=== PATIENT | female | born 1965 | race Caucasian/White ===

== ENCOUNTER 2020-07-20 16:16 | Outpatient (REF) | payer BC, SELFPAY ==
[2020-07-20 17:22] LABS: Alanine Aminotransferase 15 U/L (0-31); Albumin Level 4.4 g/dL (3.5-5.0); Alkaline Phosphatase 110 U/L (39-117); Anion Gap 15 (12-20); Aspartate Amino Transferase 15 U/L (5-31); Bilirubin Direct < 0.2 mg/dL (0.0-0.5); Bilirubin Total 0.2 mg/dL (0.0-1.0); Blood Urea Nitrogen 11 mg/dL (9-16); Carbon Dioxide 23 mmol/L (22-29); Chloride 107 mmol/L (96-108); Estimated Glomerular Filt Rate > 60; Glucose Random 93 mg/dL (60-115); Sodium 141 mmol/L (135-145); Total Protein 6.8 g/dL (6.5-8.0)
== END 2020-07-20 16:17 | disposition home or self-care (01) ==
LOC: HO.LAB 16:16
PROVIDERS: PCP Internal Medicine; Visit Provider Psychiatry & Neurology Neurology
DX: G40.209 Localization-related (focal) (partial) symptomatic epilepsy and epileptic syndromes with complex partial seizures, not intractable, without status epilepticus (principal)
CPT/HCPCS: 36415; 80048; 80076

== ENCOUNTER 2025-03-15 14:18 | Outpatient (AMB) | payer OTHER, SELFPAY ==
--- NOTE | 2025-03-15 14:24 | A.OFFVIS_ITS ---
Intake Visit Reasons: Follow up Allergies codeine Allergy (Unknown, Verified 03/15/25 14:31) Unknown Medication List - Last Reconciled 03/15/25 by Pretty Mckay CNP albuterol sulfate 90 mcg/actuation 2 puffs inhalation Q4H PRN atorvastatin 20 mg PO DAILY cyclobenzaprine 5 mg PO BEDTIME PRN meloxicam 7.5 mg PO DAILY omeprazole 40 mg PO BID ondansetron 4 mg PO DAILY oxcarbazepine 300 mg PO BID 90 days paroxetine HCl 10 mg PO DAILY sumatriptan succinate 50 mg PO DAILY PRN topiramate 100 mg PO BID 90 days HPI Comments Details: 59-year-old woman with chronic neck, left shoulder pain, previously treated with opioids, complex partial seizure disorder (daydreaming, spacing out, unresponsiveness, not talking for a few seconds with no knowledge of it) associated with left parietal meningioma treated with XRT in 2009, and migraine treated with topiramate. She was doing okay. She was taking oxcarbazepine twice a day. No seizures. Headaches were still there, but she has not had to sumatriptan recently. She was having some pain to wrists, and numbness and tingling to first three fingers bilaterally off and on. Strength was not as good, and she was not crafting as much because she was having trouble using glue gun. She had injection in wrist from PCP about 2 months ago which helped some. Sometimes her fingers were locking up. Sleep was not so good. Sometimes she had trouble with word recall during conversation. Review of Systems Const Denies chills, Denies daytime sleepiness, Denies difficulty sleeping, Denies fatigue, Denies fever(s), Denies frequent falls, Reports headache(s), Denies increased appetite, Denies poor appetite, Denies snoring, Denies weakness, Denies weight gain and Denies weight loss Eyes Denies loss of vision ENT Denies vertigo, Reports dizziness and Reports headache(s) Card Denies chest pain at rest, Denies chest pain with activity, Denies syncope, Denies leg edema and Denies palpitations Resp Denies snoring GI Denies constipation, Denies heartburn, Denies diarrhea and Denies nausea Denies urinary frequency, Denies urinary incontinence and Denies urinary urgency Musc Denies abnormal gait, Reports numbness and Reports tingling Skin/Breast Denies dry skin and Denies rash Neuro Denies abnormal gait, Denies vertigo, Reports dizziness, Denies syncope, Denies frequent falls, Reports headache(s), Denies lack of coordination, Denies loss of vision, Denies memory loss, Reports numbness, Denies restless legs, Denies seizure-like activity, Reports tingling, Denies paresthesias, Denies tremor(s) and Denies weakness Psych Reports anxiety, Denies depression, Denies auditory hallucinations, Denies memory loss, Denies visual hallucinations and Denies suicidal ideation Endo Denies fatigue and Denies palpitations Physical Exam Const Other: General Appearance:? normal, in no acute distress. Skin:? no rashes, no significant birthmarks. Heart:? S1, S2 normal, no murmurs. Lungs:? clear anteriorly and posteriorly. Extremities:? no edema. Psych:? alert, oriented, cognitive function intact, cooperative with exam. Neuro Other: Mental Status:?Normal attention, orientation, memory and anxious affect.? Cranial Nerves:?Pupils are equal, round and reactive to light. External occular muscles are intact. Visual sal[place] are full. Face is symmetrical. Facial sensations are normal. Tongue is midline. Palate elevates symmetrically. Shoulder shrugging is normal. Hearing to bedside conversation is normal. She has double vision that worsens with left lower gaze. Outer image disappears by closing right eye. Fundoscopy is okay. Sensory Exam:?....? Coordination:?No ataxia,?no titubation.? Gait Exam: Within normal limits. Extrapyramidal System:?No tremor, rigidity with normal facial expressions.? Pronator Drift:?Not present.? Involuntary Movements:?No tremors seen.? Speech:?Normal.? Results Reviewed Results Reviewed: EEG at office in Feb 2024: No significant abnormality noted MRI brain at [place] in September 2023: 1. Stable known meningioma along the posterior parietal region, mild MVD (Reported) MRI brain at [place] in 2017: L post pareital parasagittal meningioma, stable (reported) [place] [facility] [place] OP: 15cm, WBCs 2, RBCs 1, Glu 58, Pro 44.7 [place] [facility] [place]: one left parietocentral high amp discharge, no symptoms reported Routine EEG in September 2016: [facility] Routine EEG in office in Nov 2014: OK EEG at office in 2010: WNL MRI brain at [place] in Jul 2014: Left parietal meningioma Assessment & Plan Assessment & Plan (1) 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 (2) Migraine: Code(s): G43.909 - Migraine, unspecified, not intractable, without status migrainosus Category: Medical Qualifiers: Migraine type: unspecified Status migrainosus presence: without status migrainosus Intractability: not intractable Qualified Code(s): G43.909 - Migraine, unspecified, not intractable, without status migrainosus Plan: Continue topiramate 100mg 1 tablet twice a day. Continue sumatriptan 50mg 1 tablet as needed for migraine. Continue cyclobenzaprine 5mg 1 tablet at bedtime as needed for muscle spasm/pain #30 for 30 days. Continue ondansetron 4mg 1 tablet as needed for nausea/vomiting #10 for 30 days. (3) Meningioma: Code(s): D32.9 - Benign neoplasm of meninges, unspecified Category: Medical (4) Bilateral carpal tunnel syndrome: Code(s): G56.03 - Carpal tunnel syndrome, bilateral upper limbs Category: Medical Plan: NCV/EMG BUE ordered. Plan . 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
--- OUTSIDE RECORDS SUMMARY | 2025-03-15 19:12 | XMS_ITS | Clinical Summary ---
Author Organization [address] Address [address] [place] [phone] Phone Care Team Providers Care Application Programmer Analyst Name Role Phone Lindsey Gill MD Primary Care [facility] ider Allergies Active Allergy Reactions Criticality Noted Date Comments Codeine Nausea And Vomiting 01/24/2005 Medications meclizine (ANTIVERT) 25 mg tablet Take 1 Tablet by mouth daily. 4 Active OXcarbazepine (TRILEPTAL) 300 mg tablet 1 tab bid 0 Active topiramate (TOPAMAX) 100 mg tablet Take 1 Tab by mouth 2 times daily. 7 Active albuterol HFA (PROAIR HFA ; PROVENTIL HFA ; VENTOLIN HFA) 90 mcg/actuation inhaler INHALE 2 PUFFS INTO THE LUNGS EVERY 4 HOURS NEEDED FOR COUGH, WHEEZING OR SHORTNESS OF BREATH 6.7 g 1 5 Active omeprazole (PriLOSEC) [address] Mondragon ns:Gastroesophag eal reflux disease without esophagitis TAKE 1 CAPSULE(40 MG) BY MOUTH TWICE DAILY. DO NOT CRUSH OR CHEW 180 capsule 2 5 Active atorvastatin (LIPITOR) 20 mg tablet TAKE 1 TABLET BY MOUTH DAILY 90 tablet 1 5 Active PARoxetine (PAXIL) 10 mg tablet TAKE 1 TABLET BY MOUTH EVERY MORNING 90 tablet 1 5 Active meloxicam (MOBIC) 7.5 mg tablet Take 1 tablet (7.5 mg total) by mouth 1 (one) time each day. 30 tablet Active Active Problems Problem Noted Date Diagnosed Date Mild intermittent asthma without complication Assessment & Plan (12/15/2024 4:26 PM EDT): Asthma is well-controlled, ACT is 20. Assessment & Plan (06/04/2024 1:57 PM EST): Asthma is well-controlled, no recent visits to emergency, no exacerbations. Will continue albuterol as needed. Vaginal dryness, menopausal 10/05/2020 Overview (03/25/2024): Last Assessment & Plan: Discussed treatment options including vaginal moisturizers vs. Vaginal estrogen cream. Risks/benefits of estrogen cream reviewed. Discussed that use may improve pain with intercourse and could possibly help with urinary symptoms. Rx for vaginal estrogen cream given today. Instructed on use. Encouraged continued use of lubricants with intercourse as well. Patient to return if symptoms do no improve. Epidermal inclusion cyst 07/07/2020 Overview (03/25/2024): Last Assessment & Plan: Nearly resolved. Encouraged continued use of sitz baths. Patient to return if symptoms worsen. Vulvar lesion 07/07/2020 Overview (03/25/2024): Last Assessment & Plan: Resolved Gastroesophageal reflux disease without esophagi tis 08/25/2019 Rotator cuff tear arthropathy, left 03/10/2018 Pure hypercholesterolemia 01/09/2018 Overview (03/25/2024): ASCVD score 2.6% Assessment & Plan (12/15/2024 4:26 PM EDT): Currently on atorvastatin 20 mg. Will continue same medication. Assessment & Plan (06/04/2024 1:57 PM EST): Last LDL was 79. Currently on Atorvastatin 20mg, well tolerated. Will continue same medication. Will recheck a CMP and a lipid profile before her next visit. Orders: Comprehensive metabolic panel; Future Lipid panel with reflex to direct LDL; Future Macular degeneration, dry 11/21/2017 Cervical adenopathy 09/05/2017 Complex partial seizure disorder (CMS/HCC V24, C MS/HCC V28) 12/21/2014 Overview (03/25/2024): Dr. Tovar. On Topamax Postnasal drip 06/29/2014 Cervical radiculitis 03/25/2014 Facet arthropathy, cervical 12/17/2013 Overview (03/25/2024): See physiatry note of 12/17/13; on Percocet, then placed on OxyContin. In 2016 - MS Contin Depression, major 05/08/2013 Pelvic pain in female 03/03/2012 IBS (irritable bowel syndrome) 09/20/2010 Overview (03/25/2024): Childhood onset with attacks of LLQ pain and diarrhea in the AM. Chronic minor rectal bleeding with attacks of diarrhea. EGD and CN neg 2006. Duodenal bx normal. Diverticulitis 08/07/2010 Overview (03/25/2024): First episode July,. Meningioma (CMS/HCC V24, CMS/HCC V28) 04/17/2010 Overview (03/25/2024): Left parasagittal sinus meningioma. Seen in [facility] (Dr. Rahman [NS] and Dr. Hardy [rad onc]). Inoperable. S/p stereotactic radiosurgery 06/24/13. MRI 02/2016 stable, 18x21 mm[address] Hardy, yrly MRI until 5 yrs post-tx (2019). His note in Feb 2019 - can perform MRI every other year, no need to follow up with him. Updated MRI 2021 stable Abnormal EKG 04/10/2010 Low back pain 06/17/2008 Assessment & Plan (06/04/2024 1:57 PM EST): As above. Orders: XR Lumbar Spine 2-3 Views; Future XR Thoracic Spine 3 Views; Future Migraine headache 06/17/2008 Fibromyalgia 01/10/2007 Overview (03/25/2024): IMO update Resolved Problems Problem Noted Date Diagnosed Date Resolved Date Adhesive capsulitis of left shoulder 07/14/2020 12/15/2024 Right hip pain 02/24/2019 12/15/2024 Right shoulder pain 11/14/2015 12/16/19 Cervicalgia 01/10/2007 12/15/2024 Encounters Date Type Department Care Team Description 02/17/2025 3:35 PM EDT Lab Draw Station [address] Polyarthralgia 02/17/2025 3:15 PM EDT Office Visit Orthopedic[address] [phone] Rene Mendez PA Polyarthralgia (Primary Dx); De Quervain's tenosynovitis 01/20/2025 3:30 PM EDT Consult Orthopedic[address] [phone] Rene Mendez PA De Quervain's tenosynovitis (Primary Dx) 01/20/2025 3:10 PM EDT - 01/20/2025 11:59 PM EDT Hospital Encounter XRAY [address] [phone] Left hand pain Discharge Disposition: Home or Self Care 12/15/2024 11:30 AM EDT Office Visit Adult Medicine [address] [phone] Lindsey Jean MD Adult general medical examination (Primary Dx); Pure hypercholesterolemia; Mild intermittent asthma without complication; Hand tendinitis; Screening for depression; Encounter for screening involving social determinants of health (SDoH) from Last 3 Months Immunizations Immunization Administration Dates Next Due Influenza Quadravalent, MDCK , 0.5ml, preservative free (Flucelvax) 6mo and older 06/07/2021,02/24/2019,01/07/2018 Influenza Quadravalent, MDCK , 0.5ml, with preservative (Flucelvax) 6mo and older 01/29/2017 Influenza trivalent, 0.5mL, preservative free (Fluarix; FluLaval; Fluzone) ages 6mo and older (Afluria) 3 years and older 02/08/2015,04/10/2010 Influenza, Unspecified 04/12/2014 VetDC SARS-CoV-2 COVID-19, mRNA, LNP-S, preservative free 06/03/2021,08/22/2020 Td Tetanus diptheria (Tdvax) 7yo and older 01/07 Tdap Tetanus diptheria acell ular pertussis (Boostrix; Adacel) 7yo and older 08/13/2007 Surgical History Surgery Date Site/Laterality Comments OTHER SURGICAL HISTORY PROCEDURE: MS UNLISTED PROCEDURE EXTRAOCULAR MUSCLE; COMMENT: X 2, for cross eyed TUBAL LIGATION PROCEDURE: HISTORICAL TUBAL LIGATION OTHER SURGICAL HISTORY 06/2013 PROCEDURE: HISTORICAL UNSPECIFIED SURGERY; COMMENT: stereotactic radiosurgery, left parasagittal sinus meningioma VAGINAL DELIVERY PROCEDURE: HISTORICAL VAGINAL DELIVERY; COMMENT: x2 UPPER GASTROINTESTINAL ENDOSCOPY 06/25/2006 PROCEDURE: MS UPPER GI ENDOSCOPY PERFORMED; COMMENT: normal with normal duodenal bx COLONOSCOPY 06/25/2006 PROCEDURE: HISTORICAL COLONOSCOPY; COMMENT: normal COLONOSCOPY 08/13/2018 PROCEDURE: HISTORICAL COLONOSCOPY; COMMENT: Diverticulosis, otherwise normal. UPPER GASTROINTESTINAL ENDOSCOPY 08/13/2018 PROCEDURE: MS UPPER GI ENDOSCOPY PERFORMED; COMMENT: Normal. Medical History Medical History Date Comments Pain in joint, shoulder region 01/19/05 D X:Pain in joint, shoulder region Hypermetropia 04/25/04 DX:Hypermetropia Seborrheic dermatitis, unspecified 07/11/04 DX:Seborrheic dermatitis, unspecified Disorder of bone and cartila ge, unspecified DX:Disorder of bone and cart ilage, unspecified Premature menopause DX:Premature menopause Heartburn 06/25/2006 DX:Heartburn; CO MMENT: EGD plus duodenal biopsies normal 3.6.07. Abdominal pain, epigastric 06/25/2006 DX:Ab dominal pain, epigastric; COMMENT: EGD plus duodenal biopsies normal 3.6.07. Hemorrhage of gastrointestin al tract, unspecified 06/25/2006 DX:Hemorrhage of gastrointes tinal tract, unspecified; COMMENT: minor hematochezia. Negative colonoscopy 06/25/2006, no colon cancer screening needed for 10 years. IBS (irritable bowel syndrome) 09/20/2010 D X:IBS (irritable bowel syndrome) OCD (obsessive compulsive disorder) 05/08/2013 DX:OCD (obsessive compulsive disorder) Depression, major 05/08/2013 DX:Depression, major OCD (obsessive compulsive disorder) 05/08/2013 DX:OCD (obsessive compulsive disorder) Complex partial seizure diso rder ([facility] V24, [facility] V28) 12/21/2014 DX:Complex partial seizure disorder (HCC) Cervical adenopathy 09/05/2017 DX:Cervical adenopathy Macular degeneration, dry 11/21/2017 DX:Mac ular degeneration, dry Meningioma ([facility] V24, [facility] V28) DX:Meningioma (HCC); COMMENT: s/p stereotactic surgery Gastroesophageal reflux dise ase without esophagitis 08/25/2019 DX:Gastroesophageal reflux d isease without esophagitis Family History Medical History Relation Name Comments Ulcerative colitis Aunt paternal No Known Problems Brother no contact Other: Psoriatic arthritis Daughter 1 Other: Allergic to water Daughter 2 Esophageal cancer Father metastasiz ed Breast cancer Father's side 1 aunt Aunt Brain cancer Father's side 2 Uncle Alcohol abuse Maternal Grandfather Arthritis Maternal Grandmother [place] Emphysema Mother smoker No Known Problems Paternal Grandfather No Known Problems Paternal Grandmother No Known Problems Sister no contact Crohn's disease Uncle paternal Autoimmune disease Neg Hx Colon cancer Neg Hx Coronary artery disease Neg Hx Diabetes Neg Hx Heart failure Neg Hx Hyperlipidemia Neg Hx Hypertension Neg Hx Mental illness Neg Hx Ovarian cancer Neg Hx Pancreatic cancer Neg Hx Sleep apnea Neg Hx Thyroid disease Neg Hx Uterine cancer Neg Hx Relation Name Status Comments Aunt Brother Alive Daughter 1 Alive Daughter 2 Alive Father (Age 69) Father's side 1 aunt Father's side 2 Maternal Grandfather Maternal Grandmother Mother (Age 70) Paternal Grandfather Paternal Grandmother Sister Alive Uncle Social History Tobacco Use Types Packs/Day Years Used Date Smoking Tobacco: Never Smokeless Tobacco: Never Tobacco Cessation:Counseling Given: Not Answered Alcohol Use Standard Drinks/Week Comments No 0 (1 standard drink = 0.6 oz pur e alcohol) Housing Instability Answer Date Recorde d Are you worried that in the next 2 months you may not have stable housing? No 12/15/2024 Food Access & Nutrition Answer Date Rec orded Do you have access to a vari ety of food including fruits and vegetables? Yes 12/15/2024 Access to Healthcare Answer Date Record ed Within the last 3 months, ho w many times did you visit the emergency department for your medical care? 0 12/15/2024 Health Literacy Answer Date Recorded How often do you need to hav e someone help you when you read instructions, pamphlets, or other written material from your doctor or pharmacy? Always 12/15/2024 Caregiver: How often do you need to have someone help you when you read instructions, pamphlets, or other written material from your doctor or pharmacy? Not on file 12/15/2024 Financial Risk Answer Date Recorded How hard is it for you to pa y for the very basics like food, housing, medical care, and air conditioning / heating? Very hard 12/15/2024 Transportation Answer Date Recorded Has the lack of transportati on kept you from meetings, work, or from getting things needed for daily living? No Has the lack of transportati on kept you from medical appointments or from getting medications? No 12/15/2024 Social Isolation Answer Date Recorded How often do you feel lonely or isolated from those around you? Patient declined 12/15/2024 Food Risk Answer Date Recorded Within the past 12 months we worried whether our food would run out before we got money to buy more. Often true 12/15/2024 Within the past 12 months th e food we bought just didn't last and we didn't have money to get more. Often true 12/15/2024 Dependent Care Answer Date Recorded Do you need help finding or paying for care for your loved ones. For example, early childhood associate teacher or elderly care for an older adult? No 12/15/2024 Education Answer Date Recorded Do you think completing more education or training, like finishing a GED, going to college, or learning a trade, would be helpful for you? No 12/15/2024 Employment and Income Answer Date Recor ded During the last four weeks, have you been actively looking for work? Patient declined 12/15/2024 Living Situation Answer Date Recorded What is your living situation? Unrecognized valu e 12/15/2024 Comments No Sex and Gender Information Value Date Recorded Sex Assigned at Not on file Legal Sex Female 1:59 PM EST Gender Identity Not on file Sexual Orientation Not on file Obstetrics History Para Term AB IAB SAB Ectopic Multiple Livin g Live Births 2 2 2 2 Date Outcome GA Total Labor Labor/2nd/3rd Weight Sex Type Anes PTL Mica A1 A5 Name Clin Term Term Last Filed Vital Signs Vital Sign Reading Time Taken Comments Blood Pressure 128/82 12/15/2024 11:22 AM EDT Pulse 80 12/15/2024 11:22 AM EDT Temperature 36.7 C (98 F) 12/15/2024 11:22 AM EDT Respiratory Rate 14 02/17/2025 3:06 PM EDT Oxygen Saturation 99% 12/15/2024 11:22 AM EDT Inhaled Oxygen Concentration - - Weight 62.6 kg (138 lb) 02/17/2025 3:06 PM EDT Height 157.5 cm (5' 2 ) 02/17/2025 3:06 PM EDT Body Mass Index 25.24 02/17/2025 3:06 PM EDT Plan of Treatment Upcoming Encounters Date Type Department Care Team (Late st Contact Info) Description 03/22/2025 11:45 AM EST Office Visit Orthopedics - [address] [phone] Rene Mendez PA [address] [place] [phone] 04/27/2025 2:00 PM EST Appointment Radiology Department - [address] [phone] 12/16/2025 2:00 PM EDT Office Visit Adult Medicine [address] [phone] Lindsey Gill MD [address] [place] [phone] Health Maintenance Due Date Last Done Comments RSV Immunization Adult Patients (1 - Risk 50-74 years 1-dose series) 2015 HIV Screening 03/31/2022 COVID-19 Vaccine ( season) 2024 06/03/2021, 09/12/2020, 08/22/2020 Cervical Cancer Screening: HPV 10/04/2025 10/04/2020 Social Influencers of Health Screening 12/15/2025 12/15/2024 Breast Cancer Screening 04/23/2026 04/23/19, 04/10/2023, 03/24/2022, Additional history exists DTaP,Tdap,and Td Vaccines (3 - Td or Tdap) 01/08/2028 01/07/2018, 08/13/2007 Colorectal Cancer Screening: Colonoscopy 08/13/2028 08/13/2018 Cholesterol Screening (Lipid Panel) 12/04/2029 12/04/2024, 07/16/2023 Medicare Annual Wellness Visit 12/15/2030 Postponed from 03/31/2022 (Not clinically appropriate to address at this time) Hepatitis C Screening Completed 07/14/2013 Influenza Vaccine Discontinued 06/07/2021, , 01/07/2018, Additional history exists Depression Screening Completed 12/15/2024, 12/02/19 HIB Vaccines Aged Out No longer eligi ble based on patient's age to complete this topic HPV Vaccines Aged Out No longer eligi ble based on patient's age to complete this topic Hepatitis A Vaccines Aged Out No long er eligible based on patient's age to complete this topic Hepatitis B Vaccines Discontinued IPV Vaccines Aged Out No longer eligi ble based on patient's age to complete this topic MMR Vaccines Aged Out No longer eligi ble based on patient's age to complete this topic Meningococcal ACWY Vaccine Aged Out N o longer eligible based on patient's age to complete this topic Meningococcal B Vaccine Aged Out No l onger eligible based on patient's age to complete this topic Pneumococcal Vaccine: 50+ Years Discontinued RSV Immunization Patients Under 20 months Aged Out No longer eligible based on patient's age to complete this topic Varicella Vaccines Aged Out No longer eligible based on patient's age to complete this topic Zoster Vaccines Discontinued Procedures Procedure Name Priority Date/Time Associated Diagnosis Comments MAURO IFA WITH TITER AND PATTERN Routine 02/17/2025 3:32 PM EDT Polyarthralgia BORRELIA BURGDORFERI ANTIBODY Routine 02/17/2025 3:32 PM EDT Polyarthralgia RHEUMATOID FACTOR Routine 02/17/2025 3:3 2 PM EDT Polyarthralgia SEDIMENTATION RATE Routine 02/17/2025 3: 32 PM EDT Polyarthralgia URIC ACID Routine 02/17/2025 3:32 PM EDT Polyarthralgia XR HAND 3+ VIEWS LEFT Routine 01/20/2025 3:34 PM EDT Left hand pain MS INJECTION SINGLE TENDON SHEATH OR LIGAMENT APONEUROSIS Routine 01/20/2025 3:30 PM EDT De Quervain's tenosynovitis LIPID PANEL WITH REFLEX TO DIRECT LDL Routine 12/04/2024 11:51 AM EDT Pure hypercholesterolemia MG MAMMO DIGITAL SCREENING W MARY BILAT Routine 04/23/2024 11:30 AM EST Encounter for screening mammogram for breast cancer DEPRESSION SCREENING Routine 12/02/2023 HPV Routine 10/04/2020 COLONOSCOPY Routine 08/13/2018 HEPATITIS C SCREENING Routine 07/14/2013 from Last 3 Months or Most Recently Relevant to Health Maintenance Results * MAURO IFA with titer and pattern (02/17/2025 3:32 PM EDT) MAURO Negative Negative 02/18/2025 2:14 PM EDT [facility] Comment:MAURO performed by ind irect immunofluorescence (IFA) using HEp-2 substrate. Blood Venous blood specimen / Unknown Venipuncture / Unknown 02/17/2025 3:32 PM EDT 02/17/2025 3:32 PM EDT us Rene ANGELES LAB BLOOD ORDERABLES Final Resul t Performing Organization Address City/[facility]/ZIP Co de Phone Number [facility] [address] [place] [address], [place] [phone] * Borrelia burgdorferi antibody (02/17/2025 3:32 PM EDT) Pathologist [facility] Lyme Ab Negative Negative LAB CHEMISTRY METHOD 02/19/2025 8:02 AM EDT [facility] Comment: No laboratory evidence of infection with B. burgdorferi (Lyme disease). Negative results may occur in patients recently infected (<=14 days) with B. burgdorferi. If recent infection is suspected, repeat testing on a new sample collected in 7- 14 days is recommended. Blood Venous blood specimen / Unknown Venipuncture / Unknown 02/17/2025 3:32 PM EDT 02/17/2025 3:32 PM EDT us Rene ANGELES LAB BLOOD ORDERABLES Final Resul t Performing Organization Address [facility] Co de Phone Number [facility] [address] [place] [address], [place] [phone] * Sedimentation rate (02/17/2025 3:32 PM EDT) [facility] Sed Rate 9 0 - 30 mm/hr LAB HEMETOLOGY METHOD 02/17/2025 6:27 PM EDT [facility] Blood Venous blood specimen / Unknown Venipuncture / Unknown 02/17/2025 3:32 PM EDT 02/17/2025 3:32 PM EDT us Rene ANGELES LAB BLOOD ORDERABLES Final Resul t Performing Organization Address City/[facility]/ZIP Co de Phone Number [facility] [address] [place] [address], [place] [phone] * Rheumatoid factor (02/17/2025 3:32 PM EDT) Rheumatoid Factor <10.0 <15.0 I Unit/mL LAB CHEMISTRY METHOD 02/17/2025 9:33 PM EDT [facility] Blood Venous blood specimen / Unknown Venipuncture / Unknown 02/17/2025 3:32 PM EDT 02/17/2025 3:32 PM EDT Rene ANGELES LAB BLOOD ORDERABLES Final Resul t Performing Organization Address City/[facility]/ZIP Co de Phone Number [facility] [address] [place] [address], [place] [phone] * Uric acid (02/17/2025 3:32 PM EDT) Pathologist [facility] Uric Acid 3.1 3.1 - 7.8 mg/dL LAB CHEMISTRY METHOD 02/17/2025 9:33 PM EDT [facility] Blood Venous blood specimen / Unknown Venipuncture / Unknown 02/17/2025 3:32 PM EDT 02/17/2025 3:32 PM EDT Rene ANGELES LAB BLOOD ORDERABLES Final Resul t Performing Organization Address [facility]/ZIP Co de Phone Number [facility] [address] [place] [address], [place] [phone] * XR Hand 3+ Views Left (01/20/2025 3:34 PM EDT) Anatomical Region Laterality Modality Upper Extremities, Hand Left Radiogra phic Imaging 01/21/2025 11:0 0 AM EDT Impressions 01/21/2025 11:05 AM EDT No acute bony abnormality or arthritic changes. -------- FINAL REPORT -------- Dictated By: Darlene Doyle Dictated Date: 01/21/2025 11:00 ET Assigned Physician: Darlene Doyle Reviewed and Electronically Signed By: Darlene Dolye Signed Date: 01/21/2025 11:05 ET Workstation ID: [id number] Transcribed By: Self Edit Transcribed Date: 01/21/2025 11:00 ET Narrative 01/21/2025 11:05 AM EDT EXAM: Left hand x-ray HISTORY: Left hand pain. COMPARISON: None FINDINGS: 3 views were performed. Bones are osteopenic. No acute fracture or malalignment detected. Joint spaces are maintained. No destructive bone lesion. No definite erosions. No soft tissue calcifications. Procedure Note Darlene Doyle MD - 01/21/2025 EXAM: Left hand x-ray HISTORY: Left hand pain. COMPARISON: None FINDINGS: 3 views were performed. Bones are osteopenic. No acute fracture or malalignment detected. Jointspaces are maintained. No destructive bone lesion. No definite erosions.No soft tissue calcifications. IMPRESSION: No acute bony abnormality or arthritic changes. -------- FINAL REPORT -------- Dictated By: Darlene Doyle Dictated Date: 01/21/2025 11:00 ET Assigned Physician: Darlene Doyle Reviewed and Electronically Signed By: Darlene Doyle Signed Date: 01/21/2025 11:05 ET Workstation ID: [id number] Transcribed By: Self Edit Transcribed Date: 01/21/2025 11:00 ET Rene ANGELES IMG XR PROCEDURES Final Result * MS INJECTION SINGLE TENDON SHEATH OR LIGAMENT APONEUROSIS (01/20/2025 3:30 PM EDT) Narrative Rene Mendez PA - 01/20/2025 3:30 PM EDT BRIDGETTE Cruz 01/21/2025 9:36 AM Hand / UE Inj/Asp: L extensor compartment 1 for de Quervain's tenosynovitis Indications: pain Details: 25 G needle, radial approach Medications: 1 mL lidocaine 1 %; 40 mg methylPREDNISolone acetate 40 mg/mL Informed Consent: Site: 1st dorsal compartment Laterality: Left Relevant images/test results available and reviewed: yes Health status cleared: Yes Procedure/treatment, purpose, treatment alternatives, risks/potential complications and benefits explained: yes Risk/complications/benefits details: Risks include but are not limited to: The treatment may not accomplish the desired results. Additionally bleeding, infection, damage to tendon, nerve, cartilage, muscle; thinning or lightening of the skin in the area of injection; flushing or redness of the face, elevated blood pressure or blood sugar, allergic reaction, rash, increased pain Patient questions answered: yes Patient agrees, verbalizes understanding, and wants to proceed: yes Consent given by: Patient Informed consent discussion completed by Physician/ANA with patient: Verbal Pre-procedure timeout performed: yes us Rene ANGELES IN CLINIC/BEDSIDE ORDERABLES Fin al Result * Lipid panel with reflex to direct LDL (12/04/2024 11:51 AM EDT) Cholesterol 168 0 - 200 mg/dL LAB CHEMISTRY METHOD 12/04/2024 2:34 PM EDT [facility] Triglycerides 116 0 - 150 mg/dL LAB CHEMISTRY METHOD 12/04/2024 2:34 PM [facility] HDL 66 >=40 mg/dL LAB CHEMISTRY METHOD 12/04/2024 2:34 PM [facility] LDL Calculated 79 0 - 100 mg/dL LAB CHEMISTRY METHOD 12/04/2024 2:34 PM [facility] Comment:Estimated LDL Calcul ated using equation: Total cholesterol - HDL cholesterol - (Triglycerides/5) VLDL Cholesterol Sarbjit 23.2 mg/dL LAB CHEMISTRY METHOD 12/04/2024 2:34 PM [facility] Non HDL Chol. (LDL+VLDL) 102 <145 mg/dL LAB CHEMISTRY METHOD 12/04/2024 2:34 PM [facility] Chol/HDL Ratio 2.5 0.0 - 4.4 LAB CHEMISTRY METHOD 12/04/2024 2:34 PM [facility] Blood Venous blood specimen / Unknown Venipuncture / Unknown 12/04/2024 11:51 AM EDT 12/04/2024 11:51 AM EDT us Lindsey Gill MD LAB BLOOD ORDERABL ES Final Result [facility] [address] [place] [address], [place] [phone] * MG Mammo Digital Screening w Mary bilat (04/23/2024 11:30 AM EST) Anatomical Region Laterality Modality Breast Bilateral Mammography 04/23/2024 1:22 PM EST Impressions 04/23/2024 1:24 PM EST Benign. BI-RADS CATEGORY: 1 - NEGATIVE RECOMMENDATION: Screening bilateral mammogram is recommended in 1 year. Mammo Location: [facility], [address] [place] [address], [id number], . -------- FINAL REPORT -------- Dictated By: Katherine Lugo Dictated Date: 04/23/2024 13:22 ET Assigned Physician: Katherine Lugo Reviewed and Electronically Signed By: Katherine Lugo Signed Date: 04/23/2024 13:24 ET Workstation ID: [id number] Transcribed By: Self Edit Transcribed Date: 04/23/2024 13:22 ET Narrative 04/23/2024 1:24 PM EST CLINICAL: 58 years old, Female, routine annual exam. COMPARISON: Mammograms dating back to 03/18/2021 with most recent of 04/10/2023 TECHNIQUE: Bilateral MLO and CC views were obtained digitally with 3-D mammogram (digital breast tomosynthesis). Computer-aided detection was utilized in evaluation of this exam (CAD). FINDINGS: There is no evidence of suspicious mass or architectural distortion. No worrisome calcifications are evident. There has been no significant change from prior exam(s). BREAST DENSITY: B - There are scattered areas of fibroglandular density. Procedure Note Katherine Lugo MD - 04/23/2024 CLINICAL: 58 years old, Female, routine annual exam. COMPARISON: Mammograms dating back to 03/18/2021 with most recent of04/10/2023 TECHNIQUE: Bilateral MLO and CC views were obtained digitally with 3-Dmammogram (digital breast tomosynthesis). Computer-aided detection wasutilized in evaluation of this exam (CAD). FINDINGS: There is no evidence of suspicious mass or architectural distortion. Noworrisome calcifications are evident. There has been no significantchange from prior exam(s). BREAST DENSITY: B - There are scattered areas of fibroglandular density. IMPRESSION: Benign. BI-RADS CATEGORY: 1 - NEGATIVE RECOMMENDATION: Screening bilateral mammogram is recommended in 1 year. Mammo Location: [facility], [address] [place] [address], [address], . -------- FINAL REPORT -------- Dictated By: Katherine Lugo Dictated Date: 04/23/2024 13:22 ET Assigned Physician: Katherine Lugo Reviewed and Electronically Signed By: Katherine Lugo Signed Date: 04/23/2024 13:24 ET Workstation ID: [id number] Transcribed By: Self Edit Transcribed Date: 04/23/2024 13:22 ET Lindsey Gill MD IMG BI PROCEDURES Final Result * Depression Screening (12/02/2023) [facility] Depression Screening Abstracted Result [facility] HEALTH MAINTENANCE Final Result * Cervical Cancer Screening: HPV (10/04/2020) [facility] Cervical Cancer Screening: HPV Abstracted, Negative Result [facility] HEALTH MAINTENANCE Final Result * Colonoscopy (08/13/2018) [facility] Colonoscopy Abstracted, no interpretation Anatomical Region Laterality Modality Other Result [facility] HEALTH MAINTENANCE Final Result * Hepatitis C Screening (07/14/2013) [facility] Hepatitis C Screening Abstracted [facility] HEALTH MAINTENANCE Final Result from Last 3 Months or Most Recently Relevant to Health Maintenance Insurance [employer] MEDICARE Advance Directives Documents on File Type Date Recorded Patient Court Specialist Expl anation Health Care Decision (hx) 08/02/2010 AD GREENE DIRECTIVE Health Care Decision (hx) 08/02/2010 AD GREENE DIRECTIVE Health Care Decision (hx) 08/02/2010 AD GREENE DIRECTIVE Health Care Decision (hx) 08/02/2010 AD GREENE DIRECTIVE Health Care Decision (hx) 08/02/2010 AD GREENE DIRECTIVE Care Teams Application Programmer Analyst Relationship Specialty Start Date End Date Lindsey Gill MD [address] [place] [phone] PCP - General Internal Medicine 10/02/21
--- OUTSIDE RECORDS SUMMARY | 2025-03-15 19:12 | XMS_ITS ---
Author Name [facility] Organization Unknown Care Team Organization Name Specialty Phone Email Start Date End Da albert [facility] 02/27/2022 12/09/2023
== END 2025-03-15 14:49 | disposition home or self-care (01) ==
LOC: HO.HSM 14:18
PROVIDERS: PCP Internal Medicine; Visit Provider Registered Nurse
DX: G40.209 Localization-related (focal) (partial) symptomatic epilepsy and epileptic syndromes with complex partial seizures, not intractable, without status epilepticus (principal); G43.909 Migraine, unspecified, not intractable, without status migrainosus; D32.9 Benign neoplasm of meninges, unspecified; G56.03 Carpal tunnel syndrome, bilateral upper limbs
CPT/HCPCS: 99214

== ENCOUNTER 2025-04-20 12:40 | Outpatient (REF) | payer MEDICARE, SELFPAY ==
--- NOTE | 2025-04-20 13:44 | EMG_ITS ---
Chief complaint: Pain in hands left > right in the digit 4 and 5, neck pain Referred by: Pretty Mckay CNP Procedure done: NCS and EMG of bilateral upper extremity Bilateral median and ulnar motor studies were performed. Bilateral median and ulnar mixed sensory studies, radial sensory studies and median and lateral antecubital brachial sensory studies were performed and needle examination was performed. Findings: There was mild bilateral ulnar nerve motor conduction velocity slowing across elbow. First dorsal motor unit potential revealed long duration and decreased recruitment. Impression: Mild bilateral ulnar neuropathy across elbow. Codin [address] x2 MTDD
--- OUTSIDE RECORDS SUMMARY | 2025-04-20 16:33 | XMS_ITS | Clinical Summary ---
Author Organization [address] Address [address] [place] [phone] Phone Care Team Providers Care Casino Attendant Name Role Phone Lindsey Gill MD Primary Care [facility] ider Allergies Active Allergy Reactions Criticality Noted [...] 5 Active omeprazole (PriLOSEC) [address] Lentz ons:Gastroesoph ageal reflux disease without esophagitis TAKE 1 CAPSULE(40 [...] (one) time each day. 30 tablet Active meloxicam (MOBIC) 7.5 mg tablet Take 1 tablet (7.5 mg total) by mouth 1 (one) time each day. 30 tablet 5 03/22/20 25 Discontinu ed(Reorder ) Hospital, Clinic, or Other Facility Administered Medication Ordered Dose Route Frequency Start Date End Date Status lidocaine (XYLOCAINE) 1 % injection 2 mLIndications:Bilate ral trigger thumb 2 mL Once PRN Procedure 03/22/2025 03/22/2025 Ended lidocaine (XYLOCAINE) 1 % injection 2 mLIndications:Bilate ral trigger thumb 2 mL Once PRN Procedure 03/22/2025 03/22/2025 Ended methylPREDNISolone acetate (DEPO-Medrol) injection 40 mgIndications:Bilate ral trigger thumb 40 mg Once PRN Procedure 03/22/2025 03/22/2025 Ended methylPREDNISolone acetate (DEPO-Medrol) injection 40 mgIndications:Bilate ral trigger thumb 40 mg Once PRN Procedure 03/22/2025 03/22/2025 Ended Active Problems Problem Noted Date Diagnosed Date [...] Cervical adenopathy 09/05/2017 Complex partial seizure disorder 12/21/2014 Overview (03/25/2024): Dr. Tovar. On Topamax [...] 08/07/2010 Overview (03/25/2024): First episode July,. Meningioma 04/17/2010 Overview (03/25/2024): Left parasagittal sinus meningioma. Seen in [facility] (Dr. Rahman [NS] and Dr. Hardy [...] 02/24/2019 12/15/2024 Right shoulder pain 11/14/2015 12/16/19 25 Cervicalgia 01/10/2007 12/15/2024 Encounters Date Type Department Care Team Description 03/22/2025 11:45 AM EST Office Visit Orthopedics - [address] [phone] Rene Mendez PA Bilateral trigger thumb (Primary Dx); Polyarthralgia 02/17/2025 3:35 PM EDT Lab Draw Station - [address] Polyarthralgia 02/17/2025 3:15 PM EDT Office Visit Orthopedics - [address] [phone] Rene Mendez PA Polyarthralgia (Primary Dx); De Quervain's tenosynovitis 01/20/2025 3:30 PM EDT Consult Orthopedics - [address] [place] [phone] Rene Mendez PA De Quervain's tenosynovitis (Primary Dx) 01/20/2025 3:10 PM EDT - 01/20/2025 11:59 PM EDT Hospital Encounter [facility] [address] [place], [place] [phone] Left hand pain Discharge Disposition: Home or Self Care from Last 3 Months Immunizations Immunization Administration Dates Next Due Influenza Quadravalent, MDCK , 0.5ml, preservative free (Flucelvax) 6mo and older 06/07/2021,02/24/2019,01/07/2018 Influenza Quadravalent, MDCK , 0.5ml, with preservative (Flucelvax) 6mo and older 01/29/2017 Influenza trivalent, 0.5mL, preservative free (Fluarix; FluLaval; Fluzone) ages 6mo and older (Afluria) 3 years and older 02/08/2015,04/10/2010 Influenza, Unspecified 04/12/2014 Catapult SARS-CoV-2 COVID-19, mRNA, LNP-S, preservative free 06/03/2021,08/22/2020 Td Tetanus diptheria (Tdvax) 7yo and older 01/07 Tdap Tetanus diptheria acell ular pertussis (Boostrix; Adacel) 7yo and older 08/13/2007 Surgical History Surgery Date Site/Laterality Comments OTHER SURGICAL HISTORY PROCEDURE: WI UNLISTED PROCEDURE EXTRAOCULAR MUSCLE; COMMENT: X 2, for cross eyed TUBAL LIGATION PROCEDURE: HISTORICAL TUBAL LIGATION OTHER SURGICAL HISTORY 06/2013 PROCEDURE: HISTORICAL UNSPECIFIED SURGERY; COMMENT: stereotactic radiosurgery, left parasagittal sinus meningioma VAGINAL DELIVERY PROCEDURE: HISTORICAL VAGINAL DELIVERY; COMMENT: x2 UPPER GASTROINTESTINAL ENDOSCOPY 06/25/2006 PROCEDURE: WI UPPER GI ENDOSCOPY PERFORMED; COMMENT: normal with normal duodenal bx COLONOSCOPY 06/25/2006 PROCEDURE: HISTORICAL COLONOSCOPY; COMMENT: normal COLONOSCOPY 08/13/2018 PROCEDURE: HISTORICAL COLONOSCOPY; COMMENT: Diverticulosis, otherwise normal. UPPER GASTROINTESTINAL ENDOSCOPY 08/13/2018 PROCEDURE: WI UPPER GI ENDOSCOPY PERFORMED; COMMENT: Normal. Medical [...] compulsive disorder) Complex partial seizure diso rder ([facility] V24, [facility] V28) 12/21/2014 DX:Complex partial seizure disorder (HCC) Cervical adenopathy 09/05/2017 DX:Cervical adenopathy Macular degeneration, dry 11/21/2017 DX:Mac ular degeneration, dry Meningioma ([facility] V24, [facility] V28) DX:Meningioma (HCC); COMMENT: s/p stereotactic surgery [...] Alcohol abuse Maternal Grandfather Arthritis Maternal Grandmother [place] Emphysema Mother smoker No Known Problems Paternal [...] ed Within the last 3 months, ho matthieu many times did you visit the emergency [...] care for your loved ones. For example, childbirth and infant care teacher or elderly care for an older [...] 12/15/2024 11:22 AM EDT Respiratory Rate 14 03/22/2025 11:28 AM EST Oxygen Saturation 99% 12/15/2024 11:22 AM EDT Inhaled Oxygen Concentration - - Weight 62.6 kg (138 lb) 03/22/2025 11:28 AM EST Height 157.5 cm (5' 2 ) 03/22/2025 11:28 AM EST Body Mass Index 25.24 03/22/2025 11:28 AM EST Plan of Treatment Upcoming Encounters Date Type Department Care Team (Late st Contact Info) Description 04/27/2025 2:00 PM EST Appointment Radiology Department - [address] [phone] 04/29/2025 3:15 PM EST Office Visit Orthopedics - [address] [phone] Rene Mendez PA [address] [place] [phone] 12/16/2025 2:00 PM EDT Office Visit Adult Medicine [address] [phone] Lindsey Gill MD [address] [place] [phone] Health Maintenance Due Date Last Done Comments [...] Procedure Name Priority Date/Time Associated Diagnosis Comments INJECTION TENDON OR LIGAMENT Routine 03/22/2025 11:45 AM EST Bilateral trigger thumb MAURO IFA WITH TITER AND PATTERN Routine 02/17/2025 3:32 PM EDT Polyarthralgia BORRELIA BURGDORFERI ANTIBODY Routine 02/17/2025 3:32 PM EDT Polyarthralgia RHEUMATOID FACTOR Routine 02/17/2025 3:3 2 PM EDT Polyarthralgia SEDIMENTATION RATE Routine 02/17/2025 3: 32 PM EDT Polyarthralgia URIC ACID Routine 02/17/2025 3:32 PM EDT Polyarthralgia XR HAND 3+ VIEWS LEFT Routine 01/20/2025 3:34 PM EDT Left hand pain WI INJECTION SINGLE TENDON SHEATH OR LIGAMENT APONEUROSIS Routine 01/20/2025 3:30 PM EDT De Quervain's tenosynovitis LIPID PANEL WITH REFLEX TO DIRECT LDL Routine 12/04/2024 11:51 AM EDT Pure hypercholesterolemia MG MAMMO DIGITAL SCREENING W MARY BILAT Routine 04/23/2024 11:30 AM EST Encounter for screening mammogram for breast cancer HM DEPRESSION SCREENING Routine 12/02/2023 HM HPV Routine 10/04/2020 COLONOSCOPY Routine 08/13/2018 HEPATITIS C SCREENING Routine 07/14/2013 from Last 3 Months or Most Recently Relevant to Health Maintenance Results * Injection tendon or ligament: bilateral thumb A1 (03/22/2025 11:45 AM EST) Rene Motta PA - 03/22/2025 11:45 AM EST BRIDGETTE Cruz 03/22/2025 12:37 PM Injection tendon or ligament: bilateral thumb A1 for trigger finger Indications: tendon swelling Details: 25 G needle, volar approach Medications (Right): 40 mg methylPREDNISolone acetate 40 mg/mL; 2 mL lidocaine 1 % Medications (Left): 40 mg methylPREDNISolone acetate 40 mg/mL; 2 mL lidocaine 1 % Outcome: tolerated well, no immediate complications 1 cc of solution injected on both sides2 Informed Consent: Site: Tendon sheath A1 neno Laterality: Bilateral Relevant images/test results available and reviewed: yes Health status cleared: Yes Risk/complications/benefits details: Risks include but are not [...] IN CLINIC/BEDSIDE ORDERABLES Fin al Result * MAURO IFA with titer and pattern (02/17/2025 3:32 PM EDT) MAURO Negative Negative 02/18/2025 2:14 PM EDT [facility] ([facility]) [facility] Comment:MAURO performed by ind irect immunofluorescence (IFA) using HEp-2 substrate. Blood Venous blood specimen / Unknown Venipuncture / Unknown 02/17/2025 3:32 PM EDT 02/17/2025 3:32 PM EDT us Rene ANGELES LAB BLOOD ORDERABLES Final Resul t Performing Organization Address City/[facility]/ZIP Co de Phone Number [facility] [address] [place] [address], [place] [phone] * Borrelia burgdorferi antibody (02/17/2025 3:32 PM EDT) Lyme Ab Negative Negative LAB CHEMISTRY METHOD 02/19/2025 8:02 AM EDT [facility] Comment: No laboratory evidence of infection [...] ORDERABLES Final Resul t Performing Organization Address [facility] Co de Phone Number [facility] [address] [place] [address], [place] [phone] * Sedimentation rate (02/17/2025 3:32 PM EDT) Pathologist [facility] Sed Rate 9 0 - 30 mm/hr LAB HEMETOLOGY METHOD 02/17/2025 6:27 PM EDT [facility] Blood Venous blood specimen / Unknown Venipuncture / Unknown 02/17/2025 3:32 PM EDT 02/17/2025 3:32 PM EDT us Rene ANGELES LAB BLOOD ORDERABLES Final Resul t Performing Organization Address City/[facility]/ZIP Co de Phone Number [facility] [address] [place] [address], [place] [phone] * Rheumatoid factor (02/17/2025 3:32 PM EDT) Rheumatoid Factor <10.0 <15.0 I Unit/mL LAB CHEMISTRY METHOD 02/17/2025 9:33 PM EDT [facility] Blood Venous blood specimen / Unknown Venipuncture / Unknown 02/17/2025 3:32 PM EDT 02/17/2025 3:32 PM EDT Rene ANGELES LAB BLOOD ORDERABLES Final Resul t Performing Organization Address [facility]/ZIP Co de Phone Number [facility] [address] [place] [address], [place] [phone] * Uric acid (02/17/2025 3:32 PM EDT) Pathologist [facility] Uric Acid 3.1 3.1 - 7.8 mg/dL LAB CHEMISTRY METHOD 02/17/2025 9:33 PM EDT [facility] Blood Venous blood specimen / Unknown Venipuncture / Unknown 02/17/2025 3:32 PM EDT 02/17/2025 3:32 PM EDT Rene ANGELES LAB BLOOD ORDERABLES Final Resul t Performing Organization Address [facility]/ZIP Co de Phone Number [facility] [address] [place] [address], [place] [phone] * XR Hand 3+ Views Left (01/20/2025 [...] Signed Date: 01/21/2025 11:05 ET Workstation ID: [id number] Transcribed By: Self Edit Transcribed Date: 01/21/2025 [...] Signed Date: 01/21/2025 11:05 ET Workstation ID: [id number] Transcribed By: Self Edit Transcribed Date: 01/21/2025 11:00 ET Rene ANGELES IMG XR PROCEDURES Final Result * WI INJECTION SINGLE TENDON SHEATH OR LIGAMENT APONEUROSIS [...] LAB CHEMISTRY METHOD 12/04/2024 2:34 PM EDT [facility] Triglycerides 116 0 - 150 mg/dL LAB CHEMISTRY METHOD 12/04/2024 2:34 PM EDT [facility] HDL 66 >=40 mg/dL LAB CHEMISTRY METHOD 12/04/2024 2:34 PM T [facility] LDL Calculated 79 0 - 100 mg/dL LAB CHEMISTRY METHOD 12/04/2024 2:34 PM T [facility] Comment:Estimated LDL Calcul ated using equation: Total cholesterol - HDL cholesterol - (Triglycerides/5) VLDL Cholesterol Sarbjit 23.2 mg/dL LAB CHEMISTRY METHOD 12/04/2024 2:34 PM EDT [facility] Non HDL Chol. (LDL+VLDL) 102 <145 mg/dL LAB CHEMISTRY METHOD 12/04/2024 2:34 PM [facility] Chol/HDL Ratio 2.5 0.0 - 4.4 LAB CHEMISTRY METHOD 12/04/2024 2:34 PM [facility] Blood Venous blood specimen / Unknown Venipuncture / Unknown 12/04/2024 11:51 AM EDT 12/04/2024 11:51 AM EDT us Lindsey Gill MD LAB BLOOD ORDERABL ES Final Result [facility] [address] [place] [address], [place] [phone] * MG Mammo Digital Screening w Mary bilat (04/23/2024 11:30 AM EST) Anatomical Region Laterality Modality Breast Bilateral Mammography 04/23/2024 1:22 PM EST Impressions 04/23/2024 1:24 PM EST Benign. BI-RADS CATEGORY: 1 - NEGATIVE RECOMMENDATION: Screening bilateral mammogram is recommended in 1 year. Mammo Location: [facility], [address] [place] [address], [phone], . -------- FINAL REPORT -------- Dictated By: Katherine Lugo Dictated Date: 04/23/2024 13:22 ET Assigned Physician: Katherine Lugo Reviewed and Electronically Signed By: Katherine Lugo Signed Date: 04/23/2024 13:24 ET Workstation ID: [id number] Transcribed By: Self Edit Transcribed Date: 04/23/2024 [...] is recommended in 1 year. Mammo Location: [facility], [address] [place] [address], [phone], . -------- FINAL REPORT -------- Dictated By: Katherine Lugo Dictated Date: 04/23/2024 13:22 ET Assigned Physician: Katherine Lugo Reviewed and Electronically Signed By: Katherine Lugo Signed Date: 04/23/2024 13:24 ET Workstation ID: [id number] Transcribed By: Self Edit Transcribed Date: 04/23/2024 13:22 ET Lindsey Gill MD IMG BI PROCEDURES Final Result * Depression Screening (12/02/2023) [facility] Depression Screening Abstracted Result [facility] Provider HEALTH MAINTENANCE Final Result * Cervical Cancer Screening: HPV (10/04/2020) [facility] Cervical Cancer Screening: HPV Abstracted, Negative Result [facility] HEALTH MAINTENANCE Final Result * Colonoscopy (08/13/2018) [facility] Colonoscopy Abstracted, no interpretation Anatomical Region Laterality Modality Other Result [facility] Provider HEALTH MAINTENANCE Final Result * Hepatitis C Screening (07/14/2013) [facility] Hepatitis C Screening Abstracted [facility] Provider HEALTH MAINTENANCE Final Result from Last 3 Months or Most Recently Relevant to Health Maintenance Insurance [employer] MEDICARE Advance Directives Documents on File Type Date Recorded Patient Inspection Engineer Expl anation Health Care Decision (hx) 08/02/2010 AD GREENE DIRECTIVE Health Care Decision (hx) 08/02/2010 AD GREENE DIRECTIVE Health Care Decision (hx) 08/02/2010 AD GREENE DIRECTIVE Health Care Decision (hx) 08/02/2010 AD GREENE DIRECTIVE Health Care Decision (hx) 08/02/2010 AD GREENE DIRECTIVE Care Teams Casino Attendant Relationship Specialty Start Date End Date Lindsey Gill MD [address] [place] [phone] PCP - General Internal Medicine 10/02/21
== END 2025-04-20 12:41 | disposition home or self-care (01) ==
LOC: HO.NEURO 12:40
PROVIDERS: PCP Internal Medicine; Visit Provider Registered Nurse
DX: G56.03 Carpal tunnel syndrome, bilateral upper limbs (principal); M79.641 Pain in right hand; M79.642 Pain in left hand; M54.2 Cervicalgia
CPT/HCPCS: 95886; 95913

== ENCOUNTER → 2025-04-20 13:44 | Outpatient (BNV) | payer MEDICARE, SELFPAY | PROVIDERS: PCP Internal Medicine; Visit Provider Psychiatry & Neurology Neurology | DX: G56.23 Lesion of ulnar nerve, bilateral upper limbs (principal) | CPT/HCPCS: 95886; 95913 ==